=== PATIENT | female | born 2000 | race Two or more races ===

== ENCOUNTER 2019-09-18 15:30 | Outpatient (CLI) | payer BC ==
[2019-09-18 16:08] LABS: APPEARANCE,URINE CLOUDY; BILIRUBIN,URINE NEGATIVE (NEGATIVE); COLOR,URINE AMBER; GLUCOSE, URINE NEGATIVE (NEGATIVE); KETONES,URINE NEGATIVE (NEGATIVE); LEUKOCYTE ESTERASE,URINE LARGE (NEGATIVE); NITRITE,URINE NEGATIVE (NEGATIVE); PROTEIN,URINE 30 mg/dL (NEGATIVE); URINE SPECIFIC GRAVITY 1.017; UROBILINOGEN,URINE NEGATIVE mg/dL (<2.0)
[2019-09-18 16:27] LABS: URINE AMPHETAMINES SCREEN NEGATIVE; URINE BARBITURATES SCREEN NEGATIVE; URINE BENZODIAZEPINES SCREEN NEGATIVE; URINE COCAINE SCREEN NEGATIVE; URINE MARIJUANA (THC) SCREEN NEGATIVE; URINE METHADONE SCREEN NEGATIVE; URINE PHENCYCLIDINE SCREEN NEGATIVE
--- NOTE | 2019-09-18 17:18 | Non Stress Test Report ---
Non Stress Test Datetime Report Generated by CPN: 09/18/2019 17:17 DEMOGRAPHIC EGA NST: 39.2 INDICATION Indication for Study (NST) Other: LABOR CHECK VITAL SIGNS Temperature - NST: 98.3 Pulse - NST: 58 RESP - NST: 18 NBPSYS NST: 96 NBPDIA NST: 55 MONITORING Monitor Explained: Monitor Explained; Test Explained; Patient Verbalized Understanding Time on Monitor: 09/18/2019 16:04 Time off Monitor: 09/18/2019 16:38 NST Duration: 34 NST INTERVENTIONS NST Interventions: PO Hydration; Reposition Patient Physician Notified NST: C MONTEJO, CMN BABY A: [id number] BABY A Movement : Present Contraction Frequency : IRRITABILITY FHR Baseline : 150 Accelerations : 15X15 Decelerations : None Variability : Moderate 6-25bpm NST Review: Meets Criteria for Reactive NST NST Review and Verified By : Micheal Brown RN NST Results: Reactive NST REPORT Report Trigger: Send Report
== END 2019-09-18 16:51 | disposition home or self-care (01) ==
LOC: LC 15:30
PROVIDERS: ATTEND Student in an Organized Health Care Education/Training Program
DX: Z03.71 Encounter for suspected problem with amniotic cavity and membrane ruled out (principal); Z3A.39 39 weeks gestation of pregnancy
CPT/HCPCS: 80307; 81005; 84112

== ENCOUNTER 2019-09-19 01:19 | Inpatient (IN) | payer BC ==
[2019-09-19] MEDS ORDERED: OXYTOCIN 10 UNIT/ML VIAL ONE (01:58)
[2019-09-19] MEDS ORDERED: RINGERS SOLUTION,LACTATED 1,000 ML IV ONE (01:58)
[2019-09-19] MEDS ORDERED: RINGERS SOLUTION,LACTATED 1,000 ML IV PRN (01:58)
[2019-09-19] MEDS ORDERED: LIDOCAINE 1% INJ-PF (10 MG/ML) 30 ML SDV ONE (01:59)
[2019-09-19] MEDS ORDERED: PENICILLIN G-K 5 MILLION UNIT VIAL ONE ×2 (01:59→06:07)
[2019-09-19] MEDS ORDERED: OXYTOCIN/NORMAL SALINE 20 UNIT/1,000 ML RTUINJ ONE ×2 (01:59→15:38)
[2019-09-19] MEDS ORDERED: MISOPROSTOL 0.2 MG TABLET ONE ×2 (01:59→15:44)
[2019-09-19] MEDS ORDERED: PENICILLIN G POTASSIUM 5,000,000 UNIT in DEXTROSE 5%-WATER 100 ML IV ONE (02:30)
[2019-09-19 03:13] LABS: ABSOLUTE EOSINOPHILS # (AUTO) 0.1 10^3/uL (0.0-0.6); ABSOLUTE LYMPHOCYTES (AUTO) 1.6 10^3/uL (0.5-4.7); ABSOLUTE MONOCYTES (AUTO) 0.9 10^3/uL (0.1-1.4); ABSOLUTE NEUT (AUTO) 9.2 10^3/uL (1.7-8.2); BASOPHILS % (AUTO) 0.3 % (0-2); EOSINOPHILS % (AUTO) 0.6 % (0-6); HEMATOCRIT 30.4 % (36.0-47.0); HEMOGLOBIN 10.1 g/dL (12.0-15.5); LYMPHOCYTES % (AUTO) 13.6 % (13-45); MEAN CORPUSCULAR HEMOGLOBIN 22.9 pg (27.0-33.4); MEAN CORPUSCULAR HGB CONC 33.2 g/dL (32.0-36.0); MEAN CORPUSCULAR VOLUME 69 fl (80-97); MONOCYTES % (AUTO) 7.5 % (3-13); PLATELET COUNT 307 10^3/uL (150-450); RED BLOOD COUNT 4.41 10^6/uL (3.72-5.28); RED CELL DISTRIBUTION WIDTH 17.4 % (11.5-14.0); TOTAL CELLS COUNTED % (AUTO) 100 %; WHITE BLOOD COUNT 11.8 10^3/uL (4.0-10.5)
[2019-09-19 03:33] LABS: APPEARANCE,URINE CLOUDY; BILIRUBIN,URINE NEGATIVE (NEGATIVE); COLOR,URINE YELLOW; GLUCOSE, URINE NEGATIVE (NEGATIVE); KETONES,URINE 20 mg/dL (NEGATIVE); LEUKOCYTE ESTERASE,URINE LARGE (NEGATIVE); NITRITE,URINE NEGATIVE (NEGATIVE); PROTEIN,URINE 30 mg/dL (NEGATIVE); URINE SPECIFIC GRAVITY 1.014; UROBILINOGEN,URINE NEGATIVE mg/dL (<2.0)
[2019-09-19] MEDS ORDERED: EPHEDRINE SULFATE INJ 50 MG/1 ML AMPULE ONE (03:37)
[2019-09-19] MEDS ORDERED: BUPIVACAINE HCL 0.25 % INJ/PF (2.5 MG/1 ML) 30 ML VIAL ONE (03:38)
[2019-09-19] MEDS ORDERED: FENTANYL/BUPIVACAINE/NS/PF 300 MCG/150 ML RTUINJ EPI ONE (03:38)
[2019-09-19 03:47] LABS: URINE AMPHETAMINES SCREEN NEGATIVE; URINE BARBITURATES SCREEN NEGATIVE; URINE BENZODIAZEPINES SCREEN NEGATIVE; URINE COCAINE SCREEN NEGATIVE; URINE MARIJUANA (THC) SCREEN NEGATIVE; URINE METHADONE SCREEN NEGATIVE; URINE PHENCYCLIDINE SCREEN NEGATIVE
[2019-09-19] MEDS ORDERED: FENTANYL CITRATE INJ/PF 100 MCG/2 ML AMPUL ONE (06:30)
--- NOTE | 2019-09-19 07:21 | Admission Physical ---
Datetime Report Generated by CPN: 09/19/2019 07:21 CURRENT ADMISSION Chief Complaint: Uterine Contractions Indication for Induction: Not Applicable Admit Impression : Term, Intrauterine ; Active Labor; Intact Membranes Admit Plan: Admit to Unit; Initiate Labor Protocol ALLERGIES Medication Allergies: No Medication Allergies: No Known Allergies (09/19/2019) Latex: No Latex Allergies OBSTETRICAL HISTORY EDC: 09/23/2019 00:00 : 1 Para: 0 Term: 0 : 0 SAB: 0 IAB: 0 Livin Gestational Diabetes: Yes Rh Sensitization: No Incompetent Cervix: No SHREYA: No Infertility: No ART Treatment: No Uterine Anomaly: No IUGR: No Hx Previous C/S: No Macrosomia: No Hx Loss/Stillborn: No PIH: No Hx : No Placenta Previa/Abruption: No Depression/PP Depression: No PTL/PROM: No Post Hemorrhage: No Current Procedures: Ultrasound; NST SEE RECORDS Alcohol: No Marijuana : No Cocaine: No Other Illicit Drugs: No Cigarettes: Never Smoker. 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 Heart Disease: No Hosp/Surgery: No Autoimmune Disorder: No Anesthetic Complications: No Kidney Disease: No Abnormal Pap Smear: No Neuro/Epilepsy: No Psychiatric Disorders: No Other Medical Diseases: No Hepatitis/Liver Disease: No Significant Family History: No Varicosities/Phlebitis: No Trauma/Violence : No Thyroid Dysfunction: No INFECTIOUS HISTORY Gonorrhea: No Genital Herpes: No Chlamydia: No Tuberculosis: No Syphilis: No Hepatitis: No HIV/AIDS Exposure: No Rash or Viral Illness: No HPV: No PHYSICAL EXAM General: Normal HEENT: Normal Neurologic: Normal Thyroid: Deferred Heart: Normal Lungs: Normal Breast: Deferred Back: Normal Abdomen: Normal Genitourinary Exam: Normal Extremities: Normal DTRs: Normal Pelvic Type: Adequate Vital Signs: Reviewed VAGINAL EXAM Dilatation: 6 Effacement: 90 Station: -2 MEMBRANES Membranes: Intact FETUS A EGA: 39.3 Monitoring: External US FHR- Baseline: 150 Variability: Moderate 6-25bpm Accelerations: 15X15 Decelerations: None FHR Category: Category I Presentation: Vertex Admit Comment: 19yo at 39+3ega presents with regular uterine contractions. Anemia - on iron. GDM - A1. GBS positive. Admit to labor and delivery for labor. Reassuring FWB. Anticipate . PLANS FOR LABOR AND DELIVERY Labor and Delivery: None Pain Management: Medications; Epidural Feeding Preference: Breast Benefit of Breast Feed Discussed: Yes Circumcision: N/A INFORMED CONSENT Informed Consent Obtained: Vaginal Delivery; Risks, Benefits and Alternatives Discussed Signature: with User ID: [email or web address]
[2019-09-19] MEDS: PENICILLIN G POTASSIUM 2,500,000 UNIT in DEXTROSE 5%-WATER 50 ML IV SCH ×3 (09:42→14:08)
[2019-09-19] MEDS ORDERED: OXYTOCIN/NORMAL SALINE 20 UNIT/1,000 ML RTUINJ IV PRN ×2 (10:50→16:31)
[2019-09-19] MEDS ORDERED: METHYLERGONOVINE MALEATE INJ/PF 0.2 MG/1 ML AMPULE ONE (15:38)
[2019-09-19] MEDS ORDERED: AMPICILLIN SOD/SULBACTAM 3 GM VIAL ONE (15:47)
[2019-09-19 16:18] LABS: ABSOLUTE EOSINOPHILS # (AUTO) 0.1 10^3/uL (0.0-0.6); ABSOLUTE LYMPHOCYTES (AUTO) 1.1 10^3/uL (0.5-4.7); ABSOLUTE MONOCYTES (AUTO) 0.8 10^3/uL (0.1-1.4); ABSOLUTE NEUT (AUTO) 12.1 10^3/uL (1.7-8.2); BASOPHILS % (AUTO) 0.3 % (0-2); EOSINOPHILS % (AUTO) 0.4 % (0-6); HEMOGLOBIN 9.9 g/dL (12.0-15.5); LYMPHOCYTES % (AUTO) 7.9 % (13-45); MEAN CORPUSCULAR HEMOGLOBIN 23.4 pg (27.0-33.4); MEAN CORPUSCULAR HGB CONC 33.2 g/dL (32.0-36.0); MEAN CORPUSCULAR VOLUME 71 fl (80-97); MONOCYTES % (AUTO) 5.9 % (3-13); PLATELET COUNT 271 10^3/uL (150-450); RED BLOOD COUNT 4.26 10^6/uL (3.72-5.28); RED CELL DISTRIBUTION WIDTH 17.6 % (11.5-14.0); SEGMENTED NEUTROPHILS % (AUTO) 85.5 % (42-78); TOTAL CELLS COUNTED % (AUTO) 100 %; WHITE BLOOD COUNT 14.2 10^3/uL (4.0-10.5)
[2019-09-19] MEDS ORDERED: DIBUCAINE 1% OINTMENT 28 GM TP PRN (16:31)
[2019-09-19] MEDS ORDERED: MEASLES,MUMPS&RUBELLA VACC/PF 0.5 ML VIAL SUBCUT PRN (16:31)
[2019-09-19] MEDS ORDERED: BENZOCAINE/MENTHOL AEROSOL SPRAY 56 ML TOP PRN (16:31)
[2019-09-19] MEDS ORDERED: DIPH/PERTUSS(ACELL)/TETANUS VAC/PF 0.5 ML SYR (>=10YO) IM PRN (16:31)
[2019-09-19] MEDS ORDERED: ACETAMINOPHEN WITH CODEINE #3 TABLET PO PRN ×2 (16:31)
[2019-09-19] MEDS ORDERED: ZOLPIDEM TARTRATE 5 MG TABLET PO PRN (16:31)
--- NOTE | 2019-09-19 17:08 | Delivery Summary ---
Del Sum A-C Datetime Report Generated by CPN: 09/19/2019 17:08 DELIVERY PERSONNEL DELIVERY PERSONNEL: [id number] Delivery Doctor:: Annie Bond CNM Labor and Delivery Nurse:: Leidy Weaver RNfoundation drill operator helper Nurse:: Yanira Crawford RN Nursery Nurse:: Kaylynn Whitehead RN Nursery Nurse:: BRIAN Bolivar/ASHISH: Alice Phan CNA II MATERNAL INFORMATION Delivery Anesthesia: Epidural Medications After Delivery: Pitocin 10 Units IM; Pitocin Bolus-Please Comment; Pitocin Drip 20 Units/1000ml NSS; Methergine 0.2mg IM; Cytotec 1000mcg Per Rectum/Vagina Meds After Delivery Comment: 20 units Pitocin/1000 ml NS 10 Units Uterine 1000 mcg cytotec per rectum Delivery QBL: 1162 Maternal Complications: Hemorrhage Provider Comments: SVDVM over intact perineum with tight nuchal cord. Delivery of anterior shoulder then cord doubly clamped and cut on the perineum. Cord unwrapped and then infant placed on warmer for NRP. Laceration repaired d/t acute bleeding with 1 interrupted stitch on rt vaginal wall. Placental partially detached with large amount of bleeding, it was manually removed with trailing membranes. Large and intact on inspection with marginal cord insertion. Uterine fundus firm immediately. Trickle of blood noted after cleaning up ag area, vaginal sweep revealed large clots still with firm fundus. Manual exploration of uterus done, clots removed. Bleeding slowed but not stopped. Cytotec placed rectally. LAURYN floppy and filling with clots. 10mg Pitocin injected into cervix using ring forcep to assist with getting the edge of the cervix as it was very deep. Fundus still firm but trickle of bleeding continued, manual sweep of vagina removing clots multiple times. Methergine given IM, and Dr. Serrano called to assist. Another dose of cytotec placed rectally and uterine exploration done again with removal of smaller clots with bleeding slowing down. Pt alert and being informed of situation. Afebrile with stable VS. 5 minute of baby 8, 1 minute not calculated yet. Stat H/H ordered, Venofer IV ordered for AM. Dr. Serrano notified of QBL. Unasyn 3g ordered for prophylaxsis. LABOR SUMMARY EDC: 09/23/2019 00:00 No. Babies in Womb: 1 Attempted: No Labor Anesthesia: Epidural LABOR INFORMATION Reason for Induction: Not Applicable Onset of Labor: 09/19/2019 06:23 Complete Dilatation: 09/19/2019 14:52 Cervical Ripening Agents: Cytotec @ 1000 mcg Oxytocin: Augmentation Group B Beta Strep: Postive Antibiotics # of Doses: 3 Antibiotics Time of Last Dose: 140 Name of Antibiotic Given: Penicillin G Steroids Given: None Reason Steroids Not Administered: Not Applicable Other Reason Not Administered: n/a MEMBRANES Membranes Rupture Method: Artificial Rupture of Membranes: 09/19/2019 09:04 Length of Rupture (hr): 6.25 Amniotic Fluid Color: Heavy Meconium Amniotic Fluid Amount: Moderate Amniotic Fluid Odor: Normal STAGES OF LABOR Stage 1 hr: 8 Stage 1 min: 29 Stage 2 hr: 0 Stage 2 min: 27 Stage 3 hr: 0 Stage 3 min: 5 Total Time in Labor hr: 9 Total Time in Labor min: 1 VAGINAL DELIVERY Episiotomy: None Laceration #1: Vaginal Laceration Extension #1: First Degree Laceration Repair: Yes Laceration Repair Note: 1 interrupted stitch right vaginal wall d/t bleeding Sponge Count Correct: N/A Sharps Count Correct: Yes BABY A INFORMATION Infant Delivery Date/Time: 09/19/2019 15:19 Method of Delivery: Vaginal Born in Route : No : N/A Forceps: N/A Vacuum Extraction: N/A Shoulder Dystocia : No PRESENTATION/POSITION BABY A Presentation: Cephalic Cephalic Presentation: Vertex Vertex Position: Left Occipital Anterior Breech Presentation: N/A PLACENTA INFORMATION BABY A Placenta Delivery Time : 09/19/2019 15:24 Placenta Method of Delivery: Spontaneous Placenta Status: Retained SCORES BABY A Heart Rate 1 min: Slow, Below 100 bpm Resp Effort 1 min: Slow, Irregular Reflex Irritability 1 min: Grimace Muscle Tone 1 min: Some Flexion of Extremities Color 1 min: Blue/Pale Resuscitation Effort 1 min: Tactile Stimulation; PPV/NCPAP SCORE 1 MIN: 4 Heart Rate 5 min: >100 bpm Resp Effort 5 min: Good Cry Reflex Irritability 5 min: Cough or Sneeze or Pulls Away Muscle Tone 5 min: Active Motion Color 5 min: Blue/Pale Resuscitation Effort 5 min: Tactile Stimulation SCORE 5 MIN: 8 INFORMATION BABY A Gestational Age at Delivery: 39.3 Gestational Status: Full Term- 39- 40.6 Weeks Outcome : Liveborn Condition : Stable Infant Sex: Female IDENTIFICATION BABY A Verification Date/Time: 09/19/2019 16:26 ID Band Number: [id number] Mother's Name Verified: Yes Infant RN Verifying Infant: Valentin, RN and K. Crimm, RN WEIGHT/LENGTH BABY A Infant Birthweight (gm): 3603 Infant Weight (lb): 7 Weight (oz): 15 Infant Length (in): 21.00 Length (cm): 53.34 CORD INFORMATION BABY A No. Cord Vessels: 3 Nuchal Cord : Around Neck x1, Tight Cord Blood Taken: Yes-For Eval (Mom's Blood Type - or O+) Infant Suction: Mouth; Nose ASSESSMENT BABY A Skin to Skin: Yes BABY B INFORMATION : N/A SIGNATURES Assignment: Kash Serrano MD Signature: with User ID: [email or web address] : with User ID: Janet : I was personally available for consultation and serving as supervising physician for the P.
[2019-09-19] MEDS: FERROUS SULFATE 325 MG TABLET PO SCH (18:18)
[2019-09-19] MEDS: DOCUSATE SODIUM 100 MG CAPSULE PO SCH (18:18)
[2019-09-19] MEDS: IBUPROFEN 800 MG TABLET PO SCH (21:11)
[2019-09-19 22:23] LABS: ABSOLUTE EOSINOPHILS # (AUTO) 0.1 10^3/uL (0.0-0.6); ABSOLUTE LYMPHOCYTES (AUTO) 1.5 10^3/uL (0.5-4.7); ABSOLUTE NEUT (AUTO) 16.5 10^3/uL (1.7-8.2); BASOPHILS % (AUTO) 0.2 % (0-2); EOSINOPHILS % (AUTO) 0.4 % (0-6); HEMATOCRIT 29.9 % (36.0-47.0); HEMOGLOBIN 9.8 g/dL (12.0-15.5); LYMPHOCYTES % (AUTO) 7.8 % (13-45); MEAN CORPUSCULAR HEMOGLOBIN 23.2 pg (27.0-33.4); MEAN CORPUSCULAR HGB CONC 32.6 g/dL (32.0-36.0); MEAN CORPUSCULAR VOLUME 71 fl (80-97); MONOCYTES % (AUTO) 5.3 % (3-13); PLATELET COUNT 271 10^3/uL (150-450); RED BLOOD COUNT 4.21 10^6/uL (3.72-5.28); RED CELL DISTRIBUTION WIDTH 17.8 % (11.5-14.0); SEGMENTED NEUTROPHILS % (AUTO) 86.3 % (42-78); TOTAL CELLS COUNTED % (AUTO) 100 %; WHITE BLOOD COUNT 19.1 10^3/uL (4.0-10.5)
[2019-09-20] MEDS: IBUPROFEN 800 MG TABLET PO SCH ×3 (06:09→20:59)
[2019-09-20] MEDS ORDERED: IRON SUCROSE COMPLEX INJ/PF 100 MG/5 ML SDV IV ONE (08:00)
[2019-09-20] MEDS: DOCUSATE SODIUM 100 MG CAPSULE PO SCH ×2 (09:53→17:24)
[2019-09-20] MEDS: PRENATAL VITAMIN W DHA CAPSULE PO SCH (09:53)
[2019-09-20] MEDS: SENNOSIDES/DOCUSATE 8.6-50 MG 1 EACH TABLET PO SCH (09:53)
[2019-09-20] MEDS: FERROUS SULFATE 325 MG TABLET PO SCH ×2 (09:53→17:24)
--- NOTE | 2019-09-20 13:59 | PDOC PROGRESS REPORT ---
Subjective-OB Progress Note for:: 09/20/19 Subjective: reports bleeding slowing, pain controlled with current meds. denies needs. Physical Exam (OB) Vital Signs: Temp Pulse Resp BP Pulse Ox 97.6 F 61 16 115/70 100 09/20/19 11:06 09/20/19 11:06 09/20/19 11:06 09/20/19 11:06 09/20/19 11:06 Intake & Output 09/19/19 09/20/19 09/21/19 06:59 06:59 06:59 Weight 95.3 kg - Abdomen Description: Soft Hernia Present: No Fundal Description: Firm, Midline Fundal Height: u/u - u/2 - Abdominal Distension: No distension Tenderness: Nontender - Extremities Lower extremities: Ingrid's sign - neg Calf: Normal, Nontender Objective-Diagnostic Laboratory: 09/19/19 22:13 09/19/19 09/19/19 16:10 22:13 WBC 14.2 H 19.1 H RBC 4.26 4.21 Hgb 9.9 L 9.8 L Hct 30.0 L 29.9 L MCV 71 L 71 L MCH 23.4 L 23.2 L MCHC 33.2 32.6 RDW 17.6 H 17.8 H Plt Count 271 271 Seg Neutrophils % 85.5 H 86.3 H Assessment and Plan(PN) - Time Spent with Patient Time with patient: Less than 15 minutes Medications reviewed and adjusted accordingly: Yes - Disposition Anticipated Discharge: Home Within: within 24 hours
[2019-09-21] MEDS: IBUPROFEN 800 MG TABLET PO SCH (05:33)
[2019-09-21 07:56] VITALS: BP 117/66
[2019-09-21] MEDS: FERROUS SULFATE 325 MG TABLET PO SCH (09:26)
[2019-09-21] MEDS: SENNOSIDES/DOCUSATE 8.6-50 MG 1 EACH TABLET PO SCH (09:26)
[2019-09-21] MEDS: DOCUSATE SODIUM 100 MG CAPSULE PO SCH (09:26)
[2019-09-21] MEDS: PRENATAL VITAMIN W DHA CAPSULE PO SCH (09:26)
--- NOTE | 2019-09-21 10:27 | PDOC DISCHARGE SUMMARY ---
Impression - Admit/DC Date/PCP Admission Date/Primary Care Provider: 09/19/19 01:55 KRISH GARCIA MD Discharge Date: 09/21/19 - Additional Information Discharge Diet: Regular Discharge Activity: Balance Activity w/Rest, Pelvic Rest Referrals: KRISH GARCIA MD [Primary Care Provider] - Prescriptions: Ibuprofen [Motrin 800 mg Tablet] 800 mg PO Q8HP PRN #60 tablet PRN Reason: Home Medications: Pnv No.121/Iron/Folic Acid [ Multivitamin Tablet] 1 each PO DAILY 09/19/19 Ibuprofen [Motrin 800 mg Tablet] 800 mg PO Q8HP PRN #60 tablet 09/21/19 Results Laboratory Results: WBC 19.1 10^3/uL (4.0-10.5) H 09/19/19 22:13 RBC 4.21 10^6/uL (3.72-5.28) 09/19/19 22:13 Hgb 9.8 g/dL (12.0-15.5) L 09/19/19 22:13 Hct 29.9 % (36.0-47.0) L 09/19/19 22:13 MCV 71 fl (80-97) L 09/19/19 22:13 MCH 23.2 pg (27.0-33.4) L 09/19/19 22:13 MCHC 32.6 g/dL (32.0-36.0) 09/19/19 22:13 RDW 17.8 % (11.5-14.0) H 09/19/19 22:13 Plt Count 271 10^3/uL (150-450) 09/19/19 22:13 Lymph % (Auto) 7.8 % (13-45) L 09/19/19 22:13 [place] % (Auto) 5.3 % (3-13) 09/19/19 22:13 Eos % (Auto) 0.4 % (0-6) 09/19/19 22:13 Baso % (Auto) 0.2 % (0-2) 09/19/19 22:13 Absolute Neuts (auto) 16.5 10^3/uL (1.7-8.2) H 09/19/19 22:13 Absolute Lymphs (auto) 1.5 10^3/uL (0.5-4.7) 09/19/19 22:13 Absolute Monos (auto) 1.0 10^3/uL (0.1-1.4) 09/19/19 22:13 Absolute Eos (auto) 0.1 10^3/uL (0.0-0.6) 09/19/19 22:13 Absolute Basos (auto) 0.0 10^3/uL (0.0-0.2) 09/19/19 22:13 Seg Neutrophils % 86.3 % (42-78) H 09/19/19 22:13 POC Glucose 97 mg/dL (70-110) 09/19/19 03:23 Urine Color YELLOW 09/19/19 03:12 Urine Appearance CLOUDY 09/19/19 03:12 Urine pH 6.0 (5.0-9.0) 09/19/19 03:12 Ur Specific [place] 1.014 09/19/19 03:12 Urine Protein 30 mg/dL (NEGATIVE) H 09/19/19 03:12 Urine Glucose (UA) NEGATIVE mg/dL (NEGATIVE) 09/19/19 03:12 Urine Ketones 20 mg/dL (NEGATIVE) H 09/19/19 03:12 Urine Blood NEGATIVE (NEGATIVE) 09/19/19 03:12 Urine Nitrite NEGATIVE (NEGATIVE) 09/19/19 03:12 Urine Bilirubin NEGATIVE (NEGATIVE) 09/19/19 03:12 Urine Urobilinogen NEGATIVE mg/dL (<2.0) 09/19/19 03:12 Ur Leukocyte Esterase LARGE (NEGATIVE) H 09/19/19 03:12 Urine Ascorbic Acid NEGATIVE (NEGATIVE) 09/19/19 03:12 Urine Opiates Screen NEGATIVE 09/19/19 03:12 Urine Methadone Screen NEGATIVE 09/19/19 03:12 Ur Barbiturates Screen NEGATIVE 09/19/19 03:12 Ur Phencyclidine Scrn NEGATIVE 09/19/19 03:12 Ur Amphetamines Screen NEGATIVE 09/19/19 03:12 U Benzodiazepines Scrn NEGATIVE 09/19/19 03:12 Urine Cocaine Screen NEGATIVE 09/19/19 03:12 U Marijuana (THC) Screen NEGATIVE 09/19/19 03:12 RPR NONREACTIVE (NONREACTIVE) 09/19/19 03:03 Blood Type O POSITIVE 09/19/19 03:03 Antibody Screen NEGATIVE 09/19/19 03:03 Plan Plan of Treatment: follow up in 4 weeks at [facility] for post check
== END 2019-09-21 12:31 | disposition home or self-care (01) | DRG 807 ==
LOC: LC 01:19 → LR 01:55 → 2S 18:06
PROVIDERS: ADMIT Student in an Organized Health Care Education/Training Program; ATTEND Student in an Organized Health Care Education/Training Program
PROC: 10E0XZZ Delivery of Products of Conception, External Approach (ICD-10-PCS; principal; 2019-09-19)
PROC: 0HQ9XZZ Repair Perineum Skin, External Approach (ICD-10-PCS; 2019-09-19)
PROC: 10907ZC Drainage of Amniotic Fluid, Therapeutic from Products of Conception, Via Natural or Artificial Opening (ICD-10-PCS; 2019-09-19)
DX: O99.824 Streptococcus B carrier state complicating childbirth (principal); Z37.0 Single live birth; O70.0 First degree perineal laceration during delivery; O99.02 Anemia complicating childbirth; D64.9 Anemia, unspecified; O69.1XX0 Labor and delivery complicated by cord around neck, with compression, not applicable or unspecified; Z3A.39 39 weeks gestation of pregnancy
CPT/HCPCS: 1967; 36415; 80307; 81005; 82962; 85025; 86592; 86850; 86900; 86901; 88307; 94760; J0295; J1756; J2210; J2540; J2590; J3010; J3490; J7060